=== PATIENT | male | born 1960 | race Caucasian/White ===

== ENCOUNTER 2018-04-20 20:21 | Inpatient (IN) | payer MEDICAID ==
--- NOTE | 2018-04-20 21:41 | EDPHY ---
H & P Stated Complaint: L 2nd toe infection Time Seen by Provider: 04/20/18 21:15 HPI/ROS: CHIEF COMPLAINT: Left 2nd toe infection HISTORY OF PRESENT ILLNESS: 58-year-old male with peripheral neuropathy presents with 2nd left toe infection. He thinks he snagged his toe on something a few days ago. Onset of erythema and warmth of the 2nd left toe yesterday. Gradually increasing redness, now with a red streak up his left leg. No fever. History of peripheral neuropathy, does not feel pain in the feet. 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 REVIEW OF SYSTEMS: complete 10 point ROS reviewed and is negative except for the noted elements in the HPI - Personal History Current Tetanus/Diphtheria Vaccine: Unsure - Medical/Surgical History Hx Asthma: No Hx Chronic Respiratory Disease: No Hx Diabetes: No Hx Cardiac Disease: No Hx Renal Disease: No Hx Cirrhosis: No Hx Alcoholism: No Hx HIV/AIDS: No Hx Splenectomy or Spleen Trauma: No Other PMH: htn. idiopathic PVD. peripheral neuropathy. L 1st toe amputation - Social History Smoking Status: Former smoker Alcohol Use: Sober Drug Use: None - Physical Exam Exam: General Appearance: Alert, pleasant Eyes: Pupils equal and round, no conjunctival pallor or injection ENT, Mouth: Mucous membranes moist Neck: Normal inspection Respiratory: Lungs are clear to auscultation Cardiovascular: Regular rate and rhythm Gastrointestinal: Abdomen is soft and nontender Neurological: A&O, nonfocal exam Skin: Warm and dry, no rash Extremities: Left 1st toe-circumferential erythema and warmth, no drainage; patchy erythema extends up the medial aspect of the left leg to the thigh Psychiatric: Mood and affect normal Constitutional: Initial Vital Signs Temperature (C) 37.0 C 04/20/18 20:22 Heart Rate 94 04/20/18 20:22 Respiratory Rate 18 04/20/18 20:22 Blood Pressure 143/88 H 04/20/18 20:22 O2 Sat (%) 96 04/20/18 20:22 O2 Delivery Mode Room Air Allergies/Adverse Reactions: shellfish derived Allergy (Verified 04/20/18 20:24) Home Medications: Medication Instructions Recorded Aspirin [Aspirin 81mg (*)] 81 mg PO DAILY 10/02/15 Multivitamins [Multivitamin (*)] 1 each PO DAILY 10/02/15 Herbals/Supplements -Info Only 1 ea PO DAILY 04/20/18 Lisinopril [Zestril 40 mg (*)] 40 mg PO DAILY 04/20/18 Medical Decision Making - Diagnostics Imaging Results: Xray: no evidence of osteomyelitis Imaging: I viewed and interpreted images myself ED Course/Re-evaluation: This patient presents with cellulitis of the left 2nd toe and lymphangitis. He is afebrile and does not meet SIRS criteria. Xray revelas no evidence for osteomyelitis. Blood cultures drawn. h/o MSSA, Ancef 1 g IV given. The hospitalist service was consulted for admission. Pt stable throughout ED stay. Differential Diagnosis: includes though not limited to abscess, osteomyelitis, retained FB, necrotizing fasciitis - Data Points Laboratory Results: Laboratory Results 04/20/18 16:20 04/20/18 16:20 Medications Given: Acetaminophen (Tylenol) 650 mg PO Q4HRS PRN PRN Reason: Pain, Mild/Fever, Can Take PO Stop: 10/17/18 22:40 Last Admin: 04/20/18 23:24 Dose: 650 mg Aspirin (Aspirin) 81 mg PO DAILY DEBORAH Stop: 10/18/18 08:59 Last Admin: 04/21/18 09:22 Dose: 81 mg Enoxaparin Sodium (Lovenox) 40 mg SC DAILY DEBORAH Stop: 10/18/18 08:59 Last Admin: 04/21/18 09:25 Dose: Not Given Sodium Chloride (Ns) 1,000 mls @ 125 mls/hr IV CONT DEBORAH Stop: 10/17/18 22:44 Last Admin: 04/20/18 23:24 Dose: 1,000 mls Ampicillin Sodium/Sulbactam (Sodium 3 gm/ Sodium Chloride) 100 mls @ 200 mls/ hr IV Q6HRS DEBORAH PRN Reason: Protocol Stop: 05/21/18 11:59 Last Admin: 04/21/18 11:46 Dose: 100 mls Lisinopril (Zestril) 40 mg PO DAILY DEBORAH Stop: 10/18/18 08:59 Last Admin: 04/21/18 09:23 Dose: Not Given Multivitamins (Tab-A-Luke) 1 each PO DAILY DEBORAH Stop: 10/18/18 08:59 Last Admin: 04/21/18 09:22 Dose: 1 each Discontinued Medications Cefazolin Sodium/Dextrose (Ancef 1 Gm (Premix)) 50 mls @ 200 mls/hr IV EDNOW ONE PRN Reason: Protocol Stop: 04/20/18 21:51 Last Admin: 04/20/18 22:41 Dose: 50 mls Cefazolin Sodium/Dextrose (Ancef) 100 mls @ 200 mls/hr IV Q8HRS DEBORAH PRN Reason: Protocol Stop: 05/21/18 05:59 Last Admin: 04/21/18 05:41 Dose: 100 mls Departure - Departure Disposition: [facility] Inpatient Acute Condition: Good
[2018-04-20 22:29] LABS: PLATELET COUNT 241 10^3/uL (150-400)
[2018-04-20] MEDS ORDERED: ONDANSETRON DISINTEGRATING 4 MG TAB PO PRN (22:41)
[2018-04-20] MEDS ORDERED: ONDANSETRON 4 MG/2 ML VIAL IVP PRN (22:41)
[2018-04-20] MEDS ORDERED: NS 1,000 ML IV SCH (22:45)
[2018-04-20] MEDS: ACETAMINOPHEN 325 MG TAB PO PRN (23:24)
--- NOTE | 2018-04-20 23:46 | GHP ---
DATE OF ADMISSION: 04/20/2018 HISTORY OF PRESENT ILLNESS: The patient is a 58-year-old gentleman with a history of peripheral neur opathy of uncertain etiology, as well as left great toe metatarsal amputation in the past, who presen ts with swelling and erythema of his toe. Per him it was fine until just a couple of days ago and th en today he developed redness and swelling. He denies fever and chills. He does have some lymphangi tic streaking up his arm. Looking at his toes, he does have some irritation and evidence of possibly ill-fitting shoes on the g reat toe of his left . He does not have known vascular disease. He does not have diabetes . He has previously been at least a moderate drinker and quit about a year ago. Query if this is th e source of his neuropathy. REVIEW OF SYSTEMS: Complete 10-point review of systems conducted and negative except as noted in the HPI. PAST MEDICAL HISTORY: Hypertension, peripheral neuropathy, 1st metatarsal amputation of the left gre at toe. MEDICATIONS: Lisinopril and aspirin. ALLERGIES: No known drug allergies. SOCIAL HISTORY: He has a been smoker in the past but he has quit. Alcohol, he has quit in the past. FAMILY HISTORY: Notable for neuropathy. PHYSICAL EXAMINATION: VITAL SIGNS: Temp 37, blood pressure 143/88, pulse 94, breathing 18 times a m inute, 96% on room air. GENERAL: No acute distress. HEENT: Sclerae anicteric. Oropharynx clear. Mucous membranes moist. NECK: Supple without lymphadenopathy or JVD. LUNGS: Clear to auscultatio n bilaterally. HEART: S1, S2. ABDOMEN: Soft, nontender, nondistended. LOWER EXTREMITIES: No david ma. Calves nontender. SKIN: Without rashes. His 2nd toe on his left foot is edematous and erythem atous evidence of purulence, although none was expressed by the emergency department. LABORATORY DATA: Sodium 134, potassium 4.3, chloride 102, bicarb 25, BUN 15, creatinine 0.8, glucose 77. Venous lactate is 0.7. He has history of negative hepatitis serologies. White count 11.5, hem atocrit 39, platelets are 241,000. Plain film interpreted by me shows no evidence of osteomyelitis. I discussed the case with Dr. Emilia Najera. ASSESSMENT AND PLAN: This is a 58-year-old gentleman with history of peripheral neuropathy, here wit h toe cellulitis. 1. Cellulitis: This is a pretty impressive looking toe, although with lymphangitic streaking. He h as a history of methicillin sensitive Staphylococcus aureus and culture 2-1/2 years ago, so we will c ontinue cefazolin as initiated by the emergency department. 2. Query deeper infection. The plain films are negative for osteomyelitis. I suspect it has been t here for some time perhaps smoldering ulcer on the tip of his toe as seen on the opposite foot. I wi ll check a sedimentation rate and ESR in the morning. He has been seen by Infectious Disease in the past. He has an appointment with Dr. To Farley coming up, so we will reach out to them to see him in the morning. Surgery can be called if there is a concern for deep space infection, but will give him at least overnight antibiotics first. 3. Hyponatremia. This is mild. Will follow. 4. Prophylaxis. Low molecular heparin indicated. DISPOSITION: Inpatient status. /[id number]/MODL
[2018-04-21 05:41] LABS: PLATELET COUNT 225 10^3/uL (150-400)
[2018-04-21 05:48] LABS: INR 0.92 (0.83-1.16); PROTIME(PATIENT) 12.6 SEC (12.0-15.0)
[2018-04-21] MEDS ORDERED: ceFAZolin 2 GM/DEXTROSE 100 ML IV SCH (06:00)
[2018-04-21] MEDS ORDERED: Herbals/Supplements -Info Only PO SCH (09:00)
[2018-04-21] MEDS: MULTIVITAMINS 1 EACH TAB PO SCH (09:22)
[2018-04-21] MEDS: ASPIRIN 81 MG CHEWABLE TAB PO SCH (09:22)
[2018-04-21] MEDS: LISINOPRIL 40 MG TAB PO SCH (09:23)
[2018-04-21] MEDS: ENOXAPARIN 40 MG/0.4 ML SYR SC SCH (09:25)
--- NOTE | 2018-04-21 10:09 | PDMN ---
Medical Necessity Medical necessity: [facility] [place] M70 Cellulitis A-2days: 58 yo w/ cellulitis of L 2nd toe w/ lymphangitic streaking, erythema and swelling. Query deeper infection. ID consult. Potential for surg consult if deep space infection. IV antibx started. Anticipate>2MN for monitoring and tx of cellulitis. Hx HTN, periph neuropathy, left great toe metatarsal amputation, MRSA
[2018-04-21] MEDS: AMPICILLIN/SULBACTAM 3 GM in NS 100 ML IV SCH ×3 (11:46→23:56)
--- NOTE | 2018-04-21 14:18 | GCON ---
INFECTIOUS DISEASE CONSULTATION DATE OF CONSULTATION: 04/21/2018 REFERRING PHYSICIAN: Jorden Peterson MD REASON FOR CONSULTATION: Left lower extremity toe infection with cellulitis. HISTORY OF PRESENT ILLNESS: The patient is a 58-year-old male with peripheral neuropathy, who I am a sked to see in consultation for left-sided second toe infection with concomitant foot cellulitis and lymphangitis. The patient has a prior history of skin and soft tissue infection affecting the left g reat toe requiring partial amputation. The patient notes that he has frequent callus development ove r his toes, and based on his neuropathy, these often breakdown quickly. He had developed a broken do wn callus over the second toe recently which subsequently became associated with erythema and edema a pproximately 3 days ago. Prior to onset of symptoms, he does note that he was in a swimming pool, at which point in time he kept his toe covered and does describe that one of his dogs did lick his brok en down callus at one point in time. He describes having a fever to 102 with associated chills. He did develop red streaks extending from the foot into the thigh region. He has noted some drainage fr om the tip of the toe. He did have dicloxacillin at home, which he self-initiated prior to presentat ion. Evaluation yesterday revealed a mild leukocytosis with evidence of left foot cellulitis with ly mphangitis. He was started empirically on cefazolin based on prior isolation of MSSA in the past. H is daughter notes the erythematous streaks appear to have decreased today. Plain films of the foot d o not show evidence of osteomyelitis. Patient also notes that he has had skin breakdown over the tip of the right great toe. Given the above findings, I am now asked to see the patient to assist in eir ongoing management. PAST MEDICAL HISTORY: Left great toe infection requiring partial amputation, peripheral neuropathy, hypertension. PAST SURGICAL HISTORY: Partial amputation of the left great toe, septoplasty. CURRENT MEDICATIONS: Cefazolin 2 g IV q.8 hours, lisinopril 40 mg orally daily, Lovenox 40 mg subcu daily, aspirin 81 mg p.o. daily, multivitamin p.o. daily. ALLERGIES: No known drug allergies. SOCIAL HISTORY: The patient smoked for approximately 20 years. No alcohol for 1 year. No recent tr deanna. Pet dogs at home. FAMILY HISTORY: Colon cancer, prostate cancer. REVIEW OF SYSTEMS: Outside that noted in the HPI, the remainder of 10-system review is unremarkable. PHYSICAL EXAMINATION: VITAL SIGNS: Temperature 36.6, heart rate 66, respiratory rate 16, blood pres sure 132/70, oxygen saturation 94% on room air. GENERAL: Patient is well nourished, well developed, no acute distress. He appears nontoxic. HEENT: There is no scleral icterus, conjunctival injectio n, or conjunctival petechiae. Oropharynx is clear without lesions. Dentition in fair repair. Mucou s membranes are moist. No nasal discharge or sinus tenderness. NECK: Supple without palpable lymph adenopathy or thyromegaly. CHEST: Clear to auscultation bilaterally without adventitious sounds. R espiratory effort is normal. CARDIOVASCULAR: Regular rate and rhythm without murmurs, gallops, or r ubs. DP and PT pulses are 2+ bilaterally. ABDOMEN: Soft, nontender, nondistended. There is no pal pable organomegaly. Bowel sounds are present. MUSCULOSKELETAL: The left second toe has sausage dig it deformity with erythema throughout. There is purulent drainage from the tip of the toe with palpa ble fluctuance over the distal portion of the toe with some overlying scabbing present. Erythema ext ends on to the dorsal surface of the foot with associated edema. There is a small ulceration over th e tip of the right great toe without surrounding cellulitis. There are multiple early hammertoe defo rmities. SKIN: See musculoskeletal exam. There are no other rashes noted. No stigmata of endocard itis. The skin is warm and dry to touch. NEUROLOGICAL: The patient is alert and interacts appropri ately with examiner. Cranial nerves 2 through 12 are grossly intact. Sensation is decreased in the feet bilaterally. Muscle tone and bulk are normal. LYMPHATICS: No cervical or supraclavicular node s. Mild pain in lymphatic distribution, but no visible lymphangitis. LABORATORY DATA: White blood cell count 7.6, hematocrit 39.1, platelets 225, neutrophils 60%, lympho cytes 28%. Serum creatinine is 0.8, CRP 45.8, venous lactate 0.7, INR 0.9, ESR 11. Plain film of the foot shows no evidence of osteomyelitis. IMPRESSION: Left second toe infection with concomitant cellulitis: Clinical findings reveal a digit threatening infection involving the second toe. There is palpable fluctuance over the distal portio n which will likely require incision and drainage for resolution. Partial amputation also may be nec essary. Most likely, this will be due to Staphylococcus aureus or beta-hemolytic streptococci. Resp onse to cefazolin argues against presence of methicillin-resistant Staphylococcus aureus. Given that he was licked by his dog prior to onset of symptoms, more mixed kel could also be possible. RECOMMENDATIONS: 1. Surgical consultation for incision and drainage/assess for potential need for amputation of dista l toe. 2. Unasyn 3 g IV q.6 hours (favor this for addition of mixed kel coverage based on exposure histor y). 3. Discontinue cefazolin. 4. Elevate left lower extremity. 5. The patient will need ongoing podiatry care after hospital discharge to assist with pressure offl oading and assistance with footwear as he will be at risk for continued skin breakdown and subsequent soft tissue infection. Thank you for this consultation. We will continue to follow the patient with you. /[id number]/MODL
--- NOTE | 2018-04-21 15:16 | HOSPPROG ---
Hospitalist Progress Note Assessment/Plan: Left 2nd toe cellulitis with presumed abscess - XR neg for osteo. -atbx changed to unasyn, appreciate ID input -surgical consult today, may need partial amputation Neuropathy - likely contributory to above. No pain, but decreased sensation. Does not want to try gabapentin. -discussed wide toe box shoes to decrease pressure -outpt podiatry f/u Hypertension - controlled -cont lisinopril Full code Dispo - cont inpt Subjective: Pt feels well. Denies pain. Notes streaking inside leg is resolved. No fevers/chills. He states he has neuropathy and gets frequent callouses on his toes, which then turn into ulcers. Objective: Vital Signs Temp Pulse Resp BP Pulse Ox 36.6 C 66 16 132/70 H 94 04/21/18 12:31 04/21/18 12:31 04/21/18 12:31 04/21/18 12:31 04/21/18 12:31 Microbiology 04/21/18 11:48 Gram Stain - Final Toe - Swab Laboratory Results 04/21/18 05:20 04/21/18 05:20 04/20/18 04/21/18 04/22/18 05:59 05:59 05:59 Intake Total 650 Balance 650 PT 12.6 SEC (12.0-15.0) 04/21/18 05:20 INR 0.92 (0.83-1.16) 04/21/18 05:20 - Physical Exam Constitutional: no apparent distress Eyes: PERRL Ears, Nose, Mouth, Throat: moist mucous membranes Cardiovascular: regular rate and rhythym Respiratory: no respiratory distress Gastrointestinal: normoactive bowel sounds, soft, non-tender abdomen Skin: warm Musculoskeletal: full muscle strength, other (Left 2nd toe with erythema, edema , and fluctuance at distal aspect, no drainage, no streaking) Neurologic: AAOx3 Psychiatric: interacting appropriately ICD10 Worksheet Patient Problems: Problems Problem Status Onset Cellulitis Acute
--- NOTE | 2018-04-21 15:54 | ASMTCMCOM ---
CM Note CM Note Notes: Pt is a 58 yo M. Presents with cellulitis of 2nd toe. Pt has history of neuropathy and hypertension. Pt lives with in [place]. ID consulted. No therapies ordered. CM to follow. Plan: TBD Date Signed: 04/21/2018 03:54 PM Electronically Signed By:RICARDO Myers
--- NOTE | 2018-04-21 16:44 | GCON ---
DATE OF CONSULTATION: 04/21/[address] Camilo Montalvo. CHIEF COMPLAINT: Left 2nd toe cellulitis. HISTORY OF PRESENT ILLNESS: This is a 58-year-old man with a history of idiopathic peripheral neuropathy. He developed calluses on the tips of his toes which subsequently opened up into wounds. He has had several issues with cellulitis. He was admitted on 04/20/2018, with left 2nd toe cellulitis after a callus broke open. He developed redness and swelling. In the emergency room he was noted to have red streaking up his leg to his thigh. He was started on cefazolin antibiotics. He was evaluated by Dr. Montalvo of Infectious Disease and antibiotics were switched to Unasyn. He has not had any wound cultures. He has never been fitted for orthotics. He denies any fevers or chills. Of note, he has a history of a callus followed by cellulitis which escalated to osteomyelitis of his left 1st toe which required distal toe amputation. PAST MEDICAL HISTORY: Idiopathic peripheral neuropathy, hypertension. PAST SURGICAL HISTORY: Left great toe amputation 2015. Nose surgery. FAMILY HISTORY: Significant for idiopathic neuropathy in mother, father and brother. SOCIAL HISTORY: He is a former smoker. He denies any current tobacco, alcohol , or recreational drug use. REVIEW OF SYSTEMS: 10-point review of systems negative aside from the HPI. PHYSICAL EXAMINATION: GENERAL: A pleasant, well-developed, well-nourished man in no acute distress. HEENT: Normocephalic, atraumatic. No hearing deficits. Pupils equal and round. No scleral icterus. Mucous membranes moist. RESPIRATORY: No increased work of breathing. CARDIOVASCULAR: 1+ left lower extremity peripheral edema. Palpable DP and PT pulses bilaterally. NEURO: Decreased sensation bilateral lower extremities. SKIN: The left 2nd toe is quite erythematous and edematous throughout to the base of the toe. He has hyperkeratotic tissue at the tip of the left 2nd toe with a small open wound and significant bogginess. In addition he has a crack from a callus on the tip of the right great toe without cellulitis. No evidence of red streaking. PSYCH: Mood and affect normal. IMPRESSION AND PLAN: A 58-year-old man with left 2nd toe wound with cellulitis. I recommended amputation of the left 2nd toe. He would like to obtain more information before making this decision. I then recommended an MRI of the left lower extremity with and without contrast to further identify soft tissue infection and rule out osteomyelitis. He would like to proceed with an MRI before making any surgical decisions. He understands that he would at minimum require debridement of skin and soft tissue to reveal healthy granulation tissue and start the wound healing process. Antibiotics per Infectious Disease. Appreciate hospitalist management of comorbidities. Case was discussed with Dr. Barbi Osuna, who will also evaluate the patient. I saw and evaluated the patient. Was getting established with Dr. Perez /[id number]/MODL MTDD
[2018-04-21] MEDS ORDERED: GADOBUTROL 10 ML VIAL IVP ONE (21:17)
[2018-04-22] MEDS: AMPICILLIN/SULBACTAM 3 GM in NS 100 ML IV SCH ×3 (05:47→18:25)
[2018-04-22] MEDS: MULTIVITAMINS 1 EACH TAB PO SCH (09:44)
[2018-04-22] MEDS: LISINOPRIL 40 MG TAB PO SCH (09:44)
[2018-04-22] MEDS: ENOXAPARIN 40 MG/0.4 ML SYR SC SCH (10:19)
[2018-04-22] MEDS: ASPIRIN 81 MG CHEWABLE TAB PO SCH (10:19)
--- NOTE | 2018-04-22 10:57 | PCMIDPN ---
Assessment/Plan: Assessment/Plan: * Left 2nd toe infection with osteomyelitis of distal tuft and concomitant cellulitis: Cultures are showing growth of group B Streptococcus and gram- negative abebe. 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 Continues to have sausage digit with significant cellulitis with some improvement in cellulitis over dorsal aspect of foot and resolution of lymphangitis. Discussed with patient that think amputation of distal tuft is most definitive therapy with concern that will not resolve with antibiotic therapy or with antibiotic therapy combined with local incision and drainage. Patient remains concerned about undergoing amputation - previously he had been referred as an outpatient to see Dr. Perez or Dr. Dillon and request 2nd opinion with regard to current findings. I will arrange for Podiatry opinion regarding plan of care including amputation of distal tuft. Will continue Unasyn in interim. Await further identification of gram-negative abebe noted on culture. 04/22/18 10:54 Subjective: Patient feels like left 2nd toe is less swollen. Feels like redness has decreased in intensity. Pain in lymphangitis distribution decreased. Objective: Vital Signs Temp Pulse Resp BP Pulse Ox 36.5 C 52 L 16 119/77 96 04/22/18 05:28 04/22/18 05:28 04/22/18 05:28 04/22/18 05:28 04/22/18 05:28 Microbiology 04/21/18 11:48 Gram Stain - Final Toe - Swab Laboratory Results 04/21/18 05:20 04/21/18 05:20 04/21/18 04/22/18 04/23/18 05:59 05:59 05:59 Intake Total 650 1900 Balance 650 1900 ESR 11 MM/HR (0-20) 04/21/18 05:20 C-Reactive Protein 45.8 mg/L (<10.0) H 04/21/18 05:20 Unasyn # 2 Toe culture with growth of group B Streptococcus and gram-negative abebe Blood cultures x2 no growth MRI of foot reviewed with Radiology showing edema and enhancement of distal tuft consistent with osteomyelitis of distal tuft - Physical Exam General Appearance: alert, no apparent distress, non-toxic Extremities: inflammation (Left 2nd toe remains with sausage digit deformity; erythema present throughout which is slightly less intense; dried purulent material at tip of toe with chronic scabbing present; tip of toe is boggy to palpation; mild erythema extends on to distal aspect of dorsal foot) Lymphatic: other (No tenderness in lymphangitis distribution; no lymphangitis present) - Time Spent With Patient Time Spent with Patient: greater than 35 minutes Time Spent with Patient: Greater than 35 minutes spent on this patients care, greater than 50% of time spent counseling, educating, and coordinating care regarding the above mentioned plan. ICD10 Worksheet Patient Problems: Problems Problem Status Onset Cellulitis Acute
--- NOTE | 2018-04-22 17:37 | SOAPPROG ---
[facility] Progress Note Assessment/Plan: Assessment: 58 year old with osteomylitis 2nd toe. Reviewed MRIs. He was already getting established with Dr. Perez who is able to do his surgery and follow him for his other podiatric needs. Plan: 04/22/18 17:36 Objective: Vital Signs Temp Pulse Resp BP Pulse Ox 36.8 C 64 16 135/71 H 95 04/22/18 15:11 04/22/18 15:11 04/22/18 15:11 04/22/18 15:11 04/22/18 15:11 Microbiology 04/21/18 11:48 Gram Stain - Final Toe - Swab Laboratory Results 04/21/18 05:20 04/21/18 05:20 04/21/18 04/22/18 04/23/18 05:59 05:59 05:59 Intake Total 650 1900 Balance 650 1900 PT 12.6 SEC (12.0-15.0) 04/21/18 05:20 INR 0.92 (0.83-1.16) 04/21/18 05:20 ICD10 Worksheet Patient Problems: Problems Problem Status Onset Cellulitis Acute
--- NOTE | 2018-04-22 17:38 | HOSPPROG ---
Hospitalist Progress Note Assessment/Plan: * Toe osteomyelitis -amputation recommended -await 2nd opinion from Dr. Perez -CARRO[facility] * Idiopathic neuropathy -need to follow with podiatry outpatient * HTN -lisinopril Subjective: No new complaints Objective: Vital Signs Temp Pulse Resp BP Pulse Ox 36.8 C 64 16 135/71 H 95 04/22/18 15:11 04/22/18 15:11 04/22/18 15:11 04/22/18 15:11 04/22/18 15:11 Microbiology 04/21/18 11:48 Gram Stain - Final Toe - Swab Laboratory Results 04/21/18 05:20 04/21/18 05:20 04/21/18 04/22/18 04/23/18 05:59 05:59 05:59 Intake Total 650 1900 Balance 650 1900 PT 12.6 SEC (12.0-15.0) 04/21/18 05:20 INR 0.92 (0.83-1.16) 04/21/18 05:20 case d/w Dr. Montalvo - amputation recommended MRI lower extremity - + osteo - Physical Exam Constitutional: no apparent distress, appears nourished, not in pain Cardiovascular: regular rate and rhythym, no murmur, rub, or gallop Respiratory: no respiratory distress, no rales or rhonchi, clear to auscultation Gastrointestinal: normoactive bowel sounds, soft, non-tender abdomen, no palpable masses Skin: other (2nd toe sausage digit with extensive cellulitis) Neurologic: AAOx3, sensation intact bilaterally Psychiatric: interacting appropriately, not anxious, not encephalopathic, thought process linear ICD10 Worksheet Patient Problems: Problems Problem Status Onset Cellulitis Acute
--- NOTE | 2018-04-22 19:07 | GCON ---
DATE OF CONSULTATION: 04/22/2018 REASON FOR CONSULT: Left 2nd toe osteomyelitis, peripheral neuropathy HISTORY OF PRESENT ILLNESS: Podiatry was consulted by Dr. Montalvo on this pleasant 58-year-old male with a 20-year history of peripheral neuropathy, who is admitted on 04/20/2018 with left 2nd toe cellulitis and osteomyelitis. He was originally referred by Scott 04/20/18, but went to the ER where he was admitted for cellulitis of the left foot. He is currently on Unasyn per ID. MRI positive for osteomyelitis of the distal phalanx 2nd toe. Patient relates that he first noticed the infection on Thursday, but has had the ulcer at the tip of the toe for weeks. He used a callus brush on the area which he thinks caused the wound to open up. 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 He has a long history of issues with calluses becoming infected. He has a 20 year history of idiopathic peripheral neuropathy that he believes is hereditary, as his father also had it. He previously consulted with Dr. Kaleb Riggins years ago. He denies taking any medications for the neuropathy, but is currently taking alpha-lipoic acid. He currently denies any nausea, vomiting, fever, or chills. Prior to admission, he did have fever and chills. He denies any history of shoe modifications or use of orthotic inserts. He does relate that his shoes could be too small, and he does not feel his feet from the ankles down. PAST MEDICAL HISTORY: Hypertension, idiopathic peripheral neuropathy, left great toe amputation, correction for deviated septum. MEDICATIONS: Lisinopril and aspirin. ALLERGIES: Shellfish. SOCIAL HISTORY: Previous smoker, but he has quit. Previous alcohol use, but he has quit. FAMILY HISTORY: Father had peripheral neuropathy. REVIEW OF SYSTEMS: A complete 10-point review of systems negative except for peripheral neuropathy and fever and chills prior to admission. PHYSICAL EXAMINATION: VITAL SIGNS: Blood pressure 135/71, heart rate 64, respiratory rate 16, oxygen saturation 95% on room air, temperature 36.8 degrees Celsius. LOWER EXTREMITIES: Left foot 2nd toe sausage digit with erythema extending from the 2nd toe proximally to the distal midfoot. There is scabbing and callus formation at the distal aspect of the left 2nd toe with purulent drainage noted from the wound. Previous amputation of the left hallux distal phalanx. There is scabbing present at the distal aspect of the right great toe and 2nd toe with no cellulitis or any signs of infection present on these toes. He is neuropathic from the toes to the level of the ankle. Palpable posterior tibial and dorsalis pedal pulses present. CFT less than 3 seconds. No other deformities of the foot and ankle noted. MICROBIOLOGY: Wound culture performed on 04/21/2018 shows Strep agalactiae group B, and Pseudomonas aeruginosa. IMAGING: MRI done 04/21/2018 demonstrates left forefoot plantar cutaneous ulcer , distal tip 2nd toe, associated with abnormal enhancement and edema of the distal phalanx, suspicious for osteomyelitis. Proximal and middle phalanges appear intact. Mild dorsal cellulitis over the midfoot and forefoot without abscess. LABORATORY DATA: White blood cell count 7.64, down from 11.42 on 04/20/2018. Hemoglobin 13.7, hematocrit 39.1, platelets 225. ESR 11. ASSESSMENT/PLAN: Left 2nd toe osteomyelitis of the distal phalanx. We discussed treatment options for the 2nd toe with a distal toe amputation. We discussed risks and complications, and the patient relates understanding. The consent was signed for left 2nd toe amputation, which will be performed tomorrow morning at 8:30 a.m. He will be n.p.o. after midnight tonight. He will remain in the walking boot for 3 weeks following the procedure. He is currently on Unasyn per Infectious Disease. Idiopathic Peripheral Neuropathy We discussed treatment for the peripheral neuropathy, and he was advised to consult with Dr. Kaleb Riggins, whom he did see years ago. We discussed the need for appropriate shoe gear and orthotics, and we will discuss this as an outpatient for the patient. He was advised to go up at least a half to a full shoe size to avoid injury to the distal aspect of the toes. We will plan on following the patient as outpatient for peripheral neuropathy, callus and shoe fit. /[id number]/MODL MTDD
[2018-04-22] MEDS ORDERED: ACETAMN/DIPHENHYDRAMINE 500/25MG TAB PO SCH (21:00)
[2018-04-23] MEDS: AMPICILLIN/SULBACTAM 3 GM in NS 100 ML IV SCH ×2 (00:27→05:29)
[2018-04-23] MEDS ORDERED: LIDOCAINE 1% 5 ML SDV ONE (07:51)
[2018-04-23] MEDS ORDERED: BUPIVACAINE 0.5% 30 ML SDV ONE (07:51)
[2018-04-23] MEDS ORDERED: LR 1,000 ML IV ONE (08:11)
--- NOTE | 2018-04-23 08:24 | PDANEPAE ---
ANE History of Present Illness L second toe amputation ANE Past Medical History - Cardiovascular History Hx Hypertension: Yes - Pulmonary History Hx Oxygen in Use at Home: No Hx Sleep Apnea: No Sleep Apnea Screening Result - Last Documented: Positive - Endocrine History Hx Diabetes: No - Chronic Pain History Chronic Pain: Yes ANE Review of Systems Review of Systems: - Exercise capacity Exercise capacity: >=4 METS ANE Patient History - Allergies Allergies/Adverse Reactions: shellfish derived Allergy (Verified 04/23/18 07:45) Asthsma, rash, throat closes - Home Medications Home medications: home medication list seen and reviewed Home Medications: Aspirin [Aspirin 81mg (*)] 81 mg PO DAILY 10/02/15 [Last Taken 04/20/18] Multivitamins [Multivitamin (*)] 1 each PO DAILY 10/02/15 [Last Taken 04/20/18] Herbals/Supplements -Info Only 1 ea PO DAILY 04/20/18 [Last Taken Unknown] Lisinopril [Zestril 40 mg (*)] 40 mg PO DAILY 04/20/18 [Last Taken 04/20/18] - NPO status NPO Status: no food or drink >8 hours NPO Since - Liquids (Date): 04/23/18 NPO Since - Liquids (Time): 00:00 NPO Since - Solids (Date): 04/23/18 NPO Since - Solids (Time): 00:00 - Anes Hx Anes Hx: no prior problems - Smoking Hx Smoking Status: Former smoker - Alcohol Use Alcohol Use: Sober ANE Labs/Vital Signs - Labs Result Diagrams: 04/21/18 05:20 04/21/18 05:20 - Vital Signs Blood Pressure: 125/67 Heart Rate: 57 Respiratory Rate: 16 O2 Sat (%): 96 Height: 185.42 cm Weight: 99.79 kg ANE Physical Exam - Airway Neck exam: FROM Mallampati Score: Class 1 Mouth exam: normal dental/mouth exam (lower partial removed prior to the OR) - Pulmonary Pulmonary: no respiratory distress - Cardiovascular Cardiovascular: regular rate and rhythym - ASA Status ASA Status: II ANE Anesthesia Plan Anesthesia Plan: GA with mask, MAC
[2018-04-23] MEDS ORDERED: fentaNYL 100 MCG/2 ML INJ ONE (08:34)
[2018-04-23] MEDS ORDERED: PROPOFOL/EMULSION 500 MG/50 ML BOTTLE IV ONE (08:35)
[2018-04-23] MEDS ORDERED: ceFAZolin 1 GM/5 ML SYR ONE (09:04)
[2018-04-23] MEDS ORDERED: oxyCODONE IR 5 MG TAB PO PRN (09:35)
[2018-04-23] MEDS ORDERED: DEXAMETHASONE 4 MG/ML VIAL IVP PRN (09:35)
[2018-04-23] MEDS ORDERED: ACETAMINOPHEN 500 MG TAB PO PRN (09:35)
[2018-04-23] MEDS ORDERED: ONDANSETRON 4 MG/2 ML VIAL IVP PRN (09:35)
[2018-04-23] MEDS ORDERED: PROMETHAZINE HCL 25 MG/ML INJ IVP PRN (09:35)
[2018-04-23] MEDS ORDERED: PHENYLEPHRINE HCL 100 MCG/ML SYR IVP PRN (09:35)
[2018-04-23] MEDS ORDERED: ALBUTEROL 3 ML DEYVIAL IH PRN (09:35)
[2018-04-23] MEDS ORDERED: LR 500 ML IV PRN (09:35)
[2018-04-23] MEDS ORDERED: NALOXONE HCL 0.4 MG/ML INJ IVP PRN (09:35)
[2018-04-23] MEDS ORDERED: fentaNYL 100 MCG/2 ML INJ IVP PRN (09:35)
[2018-04-23] MEDS ORDERED: METOCLOPRAMIDE 10 MG/2 ML VIAL IVP PRN (09:35)
[2018-04-23] MEDS ORDERED: MEPERIDINE 25 MG/0.5 ML AMP IVP PRN (09:35)
[2018-04-23] MEDS ORDERED: LABETALOL HCL 5 MG/ML 20 ML MDV IVP PRN (09:35)
--- NOTE | 2018-04-23 09:36 | POSTANESTH ---
Post Anesthetic Evaluation Cardiovascular Status: Normal, Stable Respiratory Status: Normal, Stable Level of Consciousness/Mental Status: Can Participate in Eval Pain Control: Adequate, Prn Tx Ordered Nausea/Vomiting Control: Adequate, Prn Tx Ordered Complications Possibly Related to Anesthesia: None Noted
--- NOTE | 2018-04-23 10:01 | POSTOPPROG ---
Post Op Note Date of Operation: 04/23/18 Surgeon: Kiki Perez Appeals Representative: None Anesthesiologist: Dr. Dinh Anesthesia: Other (Specify) (LMAC Local anesthetics: 5 ml 2% Lidocaine plain. 15 ml 0.5% Marcaine plain) Pre-op Diagnosis: Left 2nd toe osteomyelitis Post-op Diagnosis: Left 2nd toe osteomyelitis Indication: Osteomyelitis of distal phalanx 2nd toe left foot Procedure: Left 2nd toe amputation Findings: Infection 2nd toe Inf/Abcess present in the surg proc area at time of surgery?: Yes Depth: Deep Incisional (Fascial) EBL: Minimal Complications: None
[2018-04-23] MEDS: ASPIRIN 81 MG CHEWABLE TAB PO SCH (10:34)
[2018-04-23] MEDS: ACETAMINOPHEN 325 MG TAB PO PRN (10:34)
[2018-04-23] MEDS: MULTIVITAMINS 1 EACH TAB PO SCH (10:34)
[2018-04-23] MEDS: LISINOPRIL 40 MG TAB PO SCH (11:46)
--- NOTE | 2018-04-23 13:10 | PCMIDPN ---
Assessment/Plan: Assessment: 1. Left 2nd toe deep soft tissue infection with distal osteomyelitis, likely acute to subacute. Underwent distal 2nd toe amputation this morning. Growth of Pseudomonas in addition to group B strep, unclear role of Pseudomonas but will cover due to potential pathogenicity and await surgical debridement cultures. 2. Idiopathic peripheral neuropathy. Unclear etiology but underlying recurrent neuropathic ulcerations and foot infections. Plan: 1. Stop Unasyn 2. Start levofloxacin 750 mg p.o. Daily 3. Continue levofloxacin through 04/30/2018 4. ID follow-up being arranged for 04/30/2018 5. No limitation to discharge from Infectious Disease perspective 04/23/18 13:37 Subjective: No fever or chills overnight. No rash or diarrhea. Underwent left 2nd toe distal phalanges amputation this morning. No reported intraoperative complications. Generally feeling well postoperatively Objective: Vital Signs Temp Pulse Resp BP Pulse Ox 36.6 C 55 L 18 113/66 96 04/23/18 11:13 04/23/18 11:13 04/23/18 11:13 04/23/18 11:13 04/23/18 11:13 Microbiology 04/21/18 11:48 Gram Stain - Final Toe - Swab Laboratory Results 04/21/18 05:20 04/21/18 05:20 04/22/18 04/23/18 04/24/18 05:59 05:59 05:59 Intake Total 1900 1500 700 Output Total 10 Balance 1900 1500 690 ESR 11 MM/HR (0-20) 04/21/18 05:20 C-Reactive Protein 45.8 mg/L (<10.0) H 04/21/18 05:20 Microbiology 04/21/18 11:48 Toe - Swab Gram Stain - Final 04/21/18 11:48 Toe - Swab Wound Culture - Preliminary Strep Agalactiae Group B Pseudomonas Aeruginosa Laboratory Tests 04/21/18 04/21/18 05:20 05:20 WBC 7.64 Absolute Neuts (auto) 4.55 Absolute Lymphs (auto) 2.11 Creatinine 0.8 - Physical Exam General Appearance: no apparent distress EENT: No scleral icterus Extremities: normal inspection (Left lower extremity with surgical dressing in place, not taken down. No erythema extending proximal from the dressing edge.) , No erythema Skin: normal color Neuro/Psych: alert, normal mood/affect - Time Spent With Patient Time Spent with Patient: greater than 25 minutes (Counseled patient and his family extensively on potential side effects of levofloxacin and to contact infectious diseases at the 1st sign of side effects.) Time Spent with Patient: Greater than 25 minutes spent on this patients care, greater than 50% of time spent counseling, educating, and coordinating care regarding the above mentioned plan. ICD10 Worksheet Patient Problems: Problems Problem Status Onset Cellulitis Acute
--- NOTE | 2018-04-23 13:20 | GOP ---
DATE OF OPERATION: 04/23/2018 SURGEON: Kiki Perez DPM ANESTHESIA: Local with monitored anesthesia care. ANESTHESIOLOGIST: Shaheed Dinh MD. PREOPERATIVE DIAGNOSIS: Left 2nd toe osteomyelitis of the distal phalanx. POSTOPERATIVE DIAGNOSIS: Left 2nd toe osteomyelitis of the distal phalanx. PROCEDURE PERFORMED: Left 2nd toe amputation at the middle phalanx. FINDINGS: SPECIMENS: Left 2nd toe distal phalanx sent to Microbiology and Pathology. Head of middle phalanx w as sent to pathology as a proximal margin. Wound cultures were performed. ESTIMATED BLOOD LOSS: Minimal. DESCRIPTION OF PROCEDURE: Under mild sedation, the patient was brought into the operating room and p laced on the operating table in supine position. Following IV sedation, local anesthesia was obtaine d about the left foot using 5 mL of 2% lidocaine plain and 15 mL of 0.5% Marcaine plain. The foot wa s then scrubbed, prepped, and draped in the usual aseptic manner. A sterile pneumatic ankle tourniqu et was placed about the left ankle. The foot was elevated and the tourniquet inflated to 225 mmHg. Attention was then directed to the distal aspect of the left 2nd toe where an incision was made horiz ontally over the distal phalanx and extended down to the level of the distal interphalangeal joint an d extended plantarly and distally. The distal phalanx was then excised with the soft tissue from the area. The wound was then irrigated with copious sterile saline Ancef irrigation. The instrumentati on and gloves were then switched. The head of the middle phalanx was then resected utilizing an osci llating bone saw. This was then sent to Pathology as a proximal margin. The wound was then irrigate d. Skin plasty was used to remove redundant soft tissue and skin from the area. The incision was cl osed with 3-0 Vicryl, 4-0 Monocryl, and 4-0 Prolene in simple suture technique. The incision was spencer ssed with Xeroform, 4 x 4 gauze, Dian, Marv wrap. The tourniquet was deflated at 27 minutes. A prom pt hyperemic response was noted to all digits of the left foot. The patient was then transferred to the recovery room with vital signs stable and vascular status int act. Following a period of postoperative monitoring, patient will be discharged back to his room. H e will keep the dressing clean, dry, and intact. He is weightbearing as tolerated in the walking roldan t. He will continue IV antibiotics per Infectious Disease. I will see the patient tomorrow to nano roman the dressing and evaluate the wound. INJECTABLES: Preop injection of 5 mL of 2% lidocaine and 15 mL of 0.5% Marcaine plain. HEMOSTASIS: Pneumatic ankle tourniquet at 225 mmHg for 27 minutes. /[id number]/MODL
--- NOTE | 2018-04-23 14:21 | PDIAF ---
- Diagnosis Code Status: Full Code - Medication Management Nursing Home Antibiotics: The prophylaxis and 750 mg p.o. Daily [employer] Supervisor Antibiotic Stop Date: 04/30/18 Discharge Medications: electronically signed and located in the Home Medication List. PICC Care - Routine: N/A - Follow Up Care Current Providers and Referrals: Yaquelin Hernandez PA [Primary Care Provider] - As per Instructions Mykel Zendejas MD [Medical Doctor] - 04/30/18 11:00 am
[2018-04-23 15:51] VITALS: BP 120/78
--- NOTE | 2018-04-23 15:55 | ASMTDCNOTE ---
Case Management Discharge Discharge Order Complete? Answers: Yes Patient to Obtain Answers: via Family Medications Transportation Arranged Answers: Family/Friends Transport will Pick (Date 04/23/2018 12:00 AM & Time) Family Notified Answers: Yes Notes: by pt Discharge Comments Notes: Spoke with pt in the room. Pt to discharge home independently with and kids. Per pt, PT cleared him, though no note is yet in the chart. Pt prefers independent discharge, ambulating in boot. No CM needs noted at this time. CM available should needs change. Date Signed: 04/23/2018 03:54 PM Electronically Signed By:Subha Armando
--- NOTE | 2018-04-23 15:56 | ASMTLACE ---
LACE Length of stay for Answers: 3 days current admission Acuity / Level of Answers: Yes Care: Did the patient have an inpatient admission? Comorbidities - select Answers: Opioid dependence all that apply / Chronic pain Peripheral vascular disease Other Notes: HTN; Peripheral neuropathy, cellulitis # of Emergency department Answers: 1-2 visits in the last 6 months Score: 13 Date Signed: 04/23/2018 03:55 PM Electronically Signed By:Subha Armando
--- NOTE | 2018-04-23 16:05 | ASDISCHSUM ---
Discharge Information Plan Status:Home with No Needs Medically Cleared to Leave:04/22/2018 Discharge Date:04/22/2018 CM D/C Disposition:Home, Routine, Self-Care ADT D/C Disposition:Home, Routine, Self-Care Projected Discharge Date:04/22/2018 Transportation at D/C:Family Discharge Delay Reason: Follow-Up Date:04/22/2018 Discharge Slot: Final Diagnosis:cellulitis of toe Placement Information Patient Contact Information Contact Name:NEIL Relationship: Address:[address] [place] [address] Work Phone: City:[place] Alternate Phone: [facility] Code:[place] [address] Email: Financial Information Financial Class:Medicaid Primary Plan Desc:[employer] [place] Primary Plan Number:[id number] Secondary Plan Desc: Secondary Plan Number: Assessment Information LACE LACE Length of stay for Answers: 3 days current admission Acuity / Level of Answers: Yes Care: Did the patient have an inpatient admission? Comorbidities - select Answers: Opioid dependence all that apply / Chronic pain Peripheral vascular disease Other Notes: HTN; Peripheral neuropathy, cellulitis # of Emergency department Answers: 1-2 visits in the last 6 months Score: 13 Date Signed: 04/23/2018 03:55 PM Electronically Signed By:Subha Armando [facility] CM Progress Note CM Note CM Note Notes: Pt is a 58 yo M. Presents with cellulitis of 2nd toe. Pt has history of neuropathy and hypertension. Pt lives with in [place]. ID consulted. No therapies ordered. CM to follow. Plan: TBD Date Signed: 04/21/2018 03:54 PM Electronically Signed By:RICARDO Myers Case Management Discharge Plan Note Case Management Discharge Discharge Order Complete? Answers: Yes Patient to Obtain Answers: via Family Medications Transportation Arranged Answers: Family/Friends Transport will Pick (Date 04/23/2018 12:00 AM & Time) Family Notified Answers: Yes Notes: by pt Discharge Comments Notes: Spoke with pt in the room. Pt to discharge home independently with and kids. Per pt, PT cleared him, though no note is yet in the chart. Pt prefers independent discharge, ambulating in boot. No CM needs noted at this time. CM available should needs change. Date Signed: 04/23/2018 03:54 PM Electronically Signed By:Subha Armando Intervention Information
--- NOTE | 2018-04-23 18:28 | GDS ---
DISCHARGE DIAGNOSES: 1. Acute osteomyelitis of the 2nd toe, status post distal amputation. 2. Idiopathic neuropathy. 3. Hypertension. HISTORY: The patient is a 58-year-old male with idiopathic neuropathy, and he has previously had amp utation of his great toe, now presenting with a sausage digit and osteomyelitis of the 2nd toe. MRI confirmed acute osteomyelitis. Amputation was recommended. This was performed by Dr. Perez. This i s essentially a surgical cure of his osteomyelitis. He also had a cellulitic component with some lym phangitic spread, so will need to complete a course of antibiotics for the cellulitis. Microbiology i s growing group B strep and Pseudomonas. Infectious Disease is recommending 7 additional days of ora l Levaquin post discharge and close outpatient followup with Infectious Disease and Dr. Perez. DISCHARGE MEDICATIONS: Please see computerized record for full detailed list. New medications: Lev aquin 750 mg p.o. daily for 7 days ADDITIONAL DISCHARGE INSTRUCTIONS: Follow up with Dr. Mykel Zendejas and Dr. Kiki Perez. Appointmen ts were scheduled prior to patient's discharge. Greater than 30 minutes' time was spent arranging this discharge. Patient was seen and examined by chelsy roman on the day of discharge. /[id number]/MODL
== END 2018-04-23 16:28 | disposition home or self-care (01) | DRG 314 ==
LOC: F1N 22:53
PROVIDERS: ADMIT Internal Medicine; ATTEND Internal Medicine
PROC: 0Y6S0Z2 Detachment at Left 2nd Toe, Mid, Open Approach (ICD-10-PCS; principal; 2018-04-23 08:30)
DX: M86.172 Other acute osteomyelitis, left ankle and foot (principal); L03.032 Cellulitis of left toe; L03.042 Acute lymphangitis of left toe; B95.1 Streptococcus, group B, as the cause of diseases classified elsewhere; B96.5 Pseudomonas (aeruginosa) (mallei) (pseudomallei) as the cause of diseases classified elsewhere; E87.1 Hypo-osmolality and hyponatremia; G90.09 Other idiopathic peripheral autonomic neuropathy; I10 Essential (primary) hypertension; Z87.891 Personal history of nicotine dependence
CPT/HCPCS: 82607-90; 96374; 97161-GP; A9585; J0295; J0690; J1650; J2704; J3010

== ENCOUNTER → 2018-06-10 | Outpatient (CLI) | payer MEDICAID | LOC: BMCIMAGING 16:20 | PROVIDERS: ATTEND Podiatrist Foot & Ankle Surgery | DX: M20.42 Other hammer toe(s) (acquired), left foot (principal); M77.32 Calcaneal spur, left foot ==